=== PATIENT | male | born 1995 | race Two or more races ===

== ENCOUNTER 2023-06-06 15:57 | Inpatient (IN) | payer SELFPAY ==
[2023-06-06] VITALS (13 sets, daily range): BP systolic 110–145; BP diastolic 68–89; PULSE 69–92; RESP 14–18; TEMP 36.6–36.8; O2SAT 98–100; BMI 25.7; BMI 23.8
--- NOTE | 2023-06-06 15:54 | ECG_ITS ---
APPROVED REPORT Exam: Resting ECG HR:78 bpm ECG Measurements Heart Rate 78 AXES [place] 143 P 85 QRSd 109 QRS -79 QT 392 T 72 QTc 426 Conclusion Sinus rhythm T wave peaking concerning for hyperkalemic change INCOMPLETE RIGHT BUNDLE BRANCH BLOCK LEFT ANTERIOR FASCICULAR BLOCK [QRS AXIS <= -45, QR IN I, RS IN II] POSSIBLE SEPTAL MYOCARDIAL INFARCTION , OF INDETERMINATE AGE [30 ms Q WAVE IN V1/V2] Electronically signed by : LEXA HARRIS, 06/06/2023 19:30:24
--- NOTE | 2023-06-06 16:00 | HMH.EDGENADL ---
Discharge Plan Disposition Patient Disposition: Admitted Condition: Serious Clinical Impressions Clinical Impression: Diabetic ketoacidosis Qualifiers: Diabetes mellitus complication detail: without coma Discharge ED Provider: Alex Nicole General Adult HPI <SULTANA Greenfield - Last Filed: 06/06/23 17:44> General Chief complaint: Chest Pain Stated complaint: chest pain, weak, anxitey, dizzy, nausea Time Seen by Provider: 06/06/23 16:00 History of Present Illness HPI narrative: Patient presents initially with a chief complaint of chest pain . Patient actually describes difficulty and pain with swallowing and is only able to drink liquids and well chewed fruit. That has been going on for 5 days. Patient additionally tells me that he was diagnosed with diabetes approximately 1 month ago at the [facility] in [place]. However unfortunately, patient was not given a glucometer, and did not understand his diagnosis and it was not explained to him in Cameroonian at the time of his discharge. He did not know that he needed to be checking his blood sugar nor what diabetes was. He has been taking the oral medication that he was given and states that he is almost out. Patient reports feeling thirsty with increased urination. Patient denies cardiac chest pain shortness of breath fever chills hemoptysis hematochezia melena vomiting or diarrhea but does endorse nausea. Patient is traveling with the company for work and actually worked today. Related Data Allergies Allergy/AdvReac Type Severity Reaction Status Date / Time No Known Allergies Allergy Verified 06/06/23 16:27 PFSH <SULTANA Greenfield - Last Filed: 06/06/23 17:44> [facility] Disclaimer: The information contained in this section may have been updated after the patient was seen, as this information can be updated by other users. Social History (Updated 06/06/23 @ 17:44 by SULTANA Greenfield) Smoking Status: Current some day smoker alcohol intake: current current occupational status: employed Travel in the last 8 weeks: Inside the [place] <SULTANA Greenfield - Last Filed: 06/06/23 17:44> ROS Obtained: Yes Systems reviewed as appropriate & no additional complaints except as documented Physical Exam <SULTANA Greenfield - Last Filed: 06/06/23 17:44> General General appearance: alert and in no apparent distress Head Head exam: atraumatic and normal inspection Eye Eye exam: Present normal appearance, PERRL and EOMI ENT ENT exam: Present normal exam, mucous membranes dry and other (Is a strong odor of acetone on his breath.); Absent normal oropharynx (The entire oropharynx is beefy red but no obvious exudates noted or ulcers noted.) Neck Neck exam: Present normal inspection, full ROM and trachea midline; Absent lymphadenopathy Chest Chest inspection: Present normal inspection and symmetric chest wall rise Respiratory Respiratory exam: Present normal lung sounds bilaterally; Absent accessory muscle use Cardiovascular Cardiovascular exam: Present regular rate, normal rhythm, normal heart sounds, +S1 and +S2 Abdominal Exam Abdominal exam: Present soft, tenderness (Mildly diffusely tender to palpation) and normal bowel sounds; Absent guarding or rebound Extremities Exam Extremities exam: Present normal inspection and full ROM Back Exam Back exam: Present normal inspection and full ROM; Absent tenderness Neurological Exam Neurological exam: Present alert, oriented X3 and CN II-XII intact Psychiatric Psychiatric exam: Present normal affect and normal mood Skin Skin exam: Present warm, dry, intact and normal color Medical Decision Making <SULTANA Greenfield - Last Filed: 06/06/23 17:44> Medical Records Medical records reviewed: Yes I reviewed the patient's medical records. Tim Inquiry Pt receiving controlled substance: No Vital Signs: 06/06/23 15:59 06/06/23 16:30 06/06/23 17:00 Temperature 98.2 F Temperature Source Oral Pulse Rate 81 81 Pulse Rate [Right] 74 Respiratory Rate 18 Blood Pressure 110/85 132/81 Blood Pressure [Right Arm] 144/84 H Blood Pressure Mean 91 91 Blood Pressure Mean [Right Arm] 104 Blood Pressure Source [Right Arm] Automatic Cuff 02 Sat by Pulse Oximetry 100 100 100 Oxygen Delivery Method Room Air 06/06/23 17:30 Temperature Temperature Source Pulse Rate 81 Pulse Rate [Right] Respiratory Rate Blood Pressure 131/89 Blood Pressure [Right Arm] Blood Pressure Mean 103 Blood Pressure Mean [Right Arm] Blood Pressure Source [Right Arm] 02 Sat by Pulse Oximetry 100 Oxygen Delivery Method Lab Data Lab results reviewed: Yes I reviewed the patient's lab results. Lab Results 06/06/23 16:04: WBC 9.1, RBC 4.47 L, Hgb 14.2, Hct 44.9, MCV 100.6 H, MCH 31.7 H, MCHC 31.6 L, RDW 14.6, Plt Count 281, MPV 9.1, Neut % (Auto) 82.9 H, Lymph % (Auto) 12.3, Polk % (Auto) 3.7, Eos % (Auto) 0.4, Baso % (Auto) 0.6, Neut # (Auto) 7.6, Lymph # (Auto) 1.1, Polk # (Auto) 0.3, Eos # (Auto) 0.0, Baso # (Auto) 0.1, Sodium 126 L, Potassium 5.5 H, Chloride 92 L, Carbon Dioxide 8 L*, Anion Gap 31.5 H, BUN 14, Creatinine 1.20, Estimated GFR 73, Est GFR ( Amer) 88, Glucose 990 H*, Hemoglobin A1c > 14.0 H, Calcium 9.1, Phosphorus 4.4, Magnesium 2.1, Total Bilirubin 0.8, AST 37, ALT 44, Alkaline Phosphatase 267 H, Troponin I < 0.01, Total Protein 7.1, Albumin 4.7, Globulin 2.4, Albumin/Globulin Ratio 2.0 H, TSH 1.28, Acetone Level Small 06/06/23 17:04: Urine Color Yellow, Urine Appearance Clear, Urine pH 5.5, Ur Specific [place] 1.015, Urine Protein Negative, Urine Glucose (UA) 3+, Urine Ketones 3+, Urine Blood Negative, Urine Nitrate Negative, Urine Bilirubin Negative, Urine Urobilinogen 0.2, Ur Leukocyte Esterase Negative, Urine RBC None, Urine WBC None, Ur Squamous Epith Cells Occasional, Urine Bacteria Trace 06/06/23 16:04 06/06/23 16:04 Orders (Tests/Meds): ED MEDICATIONS Generic Name Dose Route Start Last Admin Trade Name Freq PRN Reason Stop Dose Admin Dextrose 50 ml 06/06/23 17:42 Dextrose 50% 50ml Syringe (Crash Cart) IVP 07/06/23 17:41 NEEDED PRN Per DKA Protocol Sodium Chloride 1,000 mls @ 150 mls/hr 06/06/23 19:15 Sod Chlor 0.9% 1000ml Bag IV 07/06/23 19:14 .Q6H40M DANIEL Sodium Chloride 2,000 mls @ 999 mls/hr 06/06/23 17:15 Sod Chlor 0.9% 1000ml Bag IV 07/06/23 17:14 .Q2H1M [facility] Insulin Human Regular 100 unit 101 mls @ 5.05 mls/hr 06/06/23 17:15 / Sodium Chloride IV 07/06/23 17:14 .Q20H [facility] Protocol 5 UNIT/HR Insulin Glargine 10 unit 06/06/23 21:00 Insulin Glargine 100 Units/Ml 3ml Flexpen SQ 07/06/23 20:59 HS [facility] Discontinued Medications Generic Name Dose Route Start Last Admin Trade Name Freq PRN Reason Stop Dose Admin Acetaminophen 1,000 mg 06/06/23 16:01 06/06/23 16:28 Acetaminophen 1,000mg/100ml Vial IV 06/06/23 16:02 1,000 mg ONCE ONE Administration Belladonna Alkaloids 60 ml 06/06/23 17:27 Belladonna Alkaloids 60 Ml Ml PO 06/06/23 17:28 ONCE ONE Lactated Ringer's 1,000 mls @ 999 mls/hr 06/06/23 16:04 06/06/23 16:28 Lactated Ringer's 1000 Ml Bag IV 06/06/23 17:04 999 mls/hr .Q1H1M ONE Administration Calcium Gluconate/Sodium Chloride 1 gm in 50 mls @ 50 mls/hr 06/06/23 17:10 Calcium Gluconate 1,000mg/50ml Nacl Premix IV 06/06/23 18:09 ONCE ONE Insulin Human Regular 10 unit 06/06/23 17:03 Insulin Human Regular 100 Units/Ml 10ml Vial IVP 06/06/23 17:04 ONCE ONE Ondansetron HCl 4 mg 06/06/23 16:01 06/06/23 16:31 Ondansetron 4mg Odt SL 06/06/23 16:02 4 mg ONCE ONE Administration ORDERS Category Date Time Status Nutrition Consult [CONS] Routine Cons 06/06/23 17:42 Active Chest XR -- portable [XR chest portable] Stat Exams 06/06/23 16:01 Completed Acetone, Serum (Rapid) Stat Lab 06/06/23 16:04 Completed Basic Metabolic Panel Q4H Lab 06/06/23 17:45 Ordered Basic Metabolic Panel Q4H Lab 06/06/23 21:45 Ordered Basic Metabolic Panel Q4H Lab 06/07/23 01:45 Ordered Basic Metabolic Panel Q4H Lab 06/07/23 05:45 Ordered Basic Metabolic Panel Q4H Lab 06/07/23 09:45 Ordered Basic Metabolic Panel Q4H Lab 06/07/23 13:45 Ordered CBC w/Auto Diff [Complete Blood Count Auto Diff] Stat Lab 06/06/23 16:04 Completed CMP [Comprehensive Metabolic Panel] Stat Lab 06/06/23 16:04 Completed Complete Blood Count Auto Diff AMLAB Lab 06/07/23 06:00 Ordered Comprehensive Metabolic Panel AMLAB Lab 06/07/23 06:00 Ordered Hemoglobin A1C Stat Lab 06/06/23 16:04 Completed Magnesium AMLAB Lab 06/07/23 06:00 Ordered Magnesium Q4H Lab 06/06/23 17:45 Ordered Magnesium Q4H Lab 06/06/23 21:45 Ordered Magnesium Q4H Lab 06/07/23 01:45 Ordered Magnesium Q4H Lab 06/07/23 05:45 Ordered Magnesium Q4H Lab 06/07/23 09:45 Ordered Magnesium Q4H Lab 06/07/23 13:45 Ordered Magnesium Stat Lab 06/06/23 16:04 Completed Phosphorous AMLAB Lab 06/07/23 06:00 Ordered Phosphorous Q4H Lab 06/06/23 17:45 Ordered Phosphorous Q4H Lab 06/06/23 21:45 Ordered Phosphorous Q4H Lab 06/07/23 01:45 Ordered Phosphorous Q4H Lab 06/07/23 05:45 Ordered Phosphorous Q4H Lab 06/07/23 09:45 Ordered Phosphorous Q4H Lab 06/07/23 13:45 Ordered Phosphorous Stat Lab 06/06/23 16:04 Completed Rapid PCR Covid and Flu A/B Stat Lab 06/06/23 16:02 Ordered TSH [Thyroid Stimulating Hormone] Stat Lab 06/06/23 16:04 Completed Trop I [Troponin I] Stat Lab 06/06/23 16:04 Completed Troponin I Q3H Lab 06/06/23 19:15 Ordered Troponin I Q3H Lab 06/06/23 22:15 Ordered UA [Urinalysis and Microscopic] Stat Lab 06/06/23 17:04 Completed Blood Culture Stat Micro 06/06/23 17:02 Ordered Urine Culture Stat Micro 06/06/23 17:04 Received VBG [Venous Blood Gas] Stat RT 06/06/23 17:08 Ordered Medical Decision Narrative: In summary patient is a 27-year-old male who presents to the emergency department for evaluation of dysphagia nausea abdominal pain. Patient is normotensive with normal heart rate satting at 100% on room air breathing 18 times a minute upon arrival, with a temperature of 98.2. Physical exam shows a well-nourished well-developed 27-year-old male who has beefy red oropharynx dry oral mucosa fusilli mildly nonfocally tender abdomen. Differential diagnosis includes DKA versus thrush versus other infection versus esophageal obstruction. Initial workup will be conducted with hematologic labs plain film chest x-ray fingerstick blood sugar. Initial interventions include crystalloid bolus Toradol Tylenol. Initial workup reviewed by me shows the patient is in DKA. Given the patient's history of newly diagnosed diabetes mellitus and DKA had an interactive discussion with hospital medicine regarding patient management. They agreed to admit the patient for ongoing treatment and care. <Alex Nicole MD - Last Filed: 06/06/23 18:15> Vital Signs: 06/06/23 15:59 06/06/23 16:30 06/06/23 17:00 Temperature 98.2 F Temperature Source Oral Pulse Rate 81 81 Pulse Rate [Right] 74 Respiratory Rate 18 Blood Pressure 110/85 132/81 Blood Pressure [Right Arm] 144/84 H Blood Pressure Mean 91 91 Blood Pressure Mean [Right Arm] 104 Blood Pressure Source [Right Arm] Automatic Cuff 02 Sat by Pulse Oximetry 100 100 100 Oxygen Delivery Method Room Air 06/06/23 17:30 Temperature Temperature Source Pulse Rate 81 Pulse Rate [Right] Respiratory Rate Blood Pressure 131/89 Blood Pressure [Right Arm] Blood Pressure Mean 103 Blood Pressure Mean [Right Arm] Blood Pressure Source [Right Arm] 02 Sat by Pulse Oximetry 100 Oxygen Delivery Method Lab Data Lab Results 06/06/23 16:04: WBC 9.1, RBC 4.47 L, Hgb 14.2, Hct 44.9, MCV 100.6 H, MCH 31.7 H, MCHC 31.6 L, RDW 14.6, Plt Count 281, MPV 9.1, Neut % (Auto) 82.9 H, Lymph % (Auto) 12.3, Polk % (Auto) 3.7, Eos % (Auto) 0.4, Baso % (Auto) 0.6, Neut # (Auto) 7.6, Lymph # (Auto) 1.1, Polk # (Auto) 0.3, Eos # (Auto) 0.0, Baso # (Auto) 0.1, Sodium 126 L, Potassium 5.5 H, Chloride 92 L, Carbon Dioxide 8 L*, Anion Gap 31.5 H, BUN 14, Creatinine 1.20, Estimated GFR 73, Est GFR ( Amer) 88, Glucose 990 H*, Hemoglobin A1c > 14.0 H, Calcium 9.1, Phosphorus 4.4, Magnesium 2.1, Total Bilirubin 0.8, AST 37, ALT 44, Alkaline Phosphatase 267 H, Troponin I < 0.01, Total Protein 7.1, Albumin 4.7, Globulin 2.4, Albumin/Globulin Ratio 2.0 H, TSH 1.28, Acetone Level Small 06/06/23 17:04: Urine Color Yellow, Urine Appearance Clear, Urine pH 5.5, Ur Specific [place] 1.015, Urine Protein Negative, Urine Glucose (UA) 3+, Urine Ketones 3+, Urine Blood Negative, Urine Nitrate Negative, Urine Bilirubin Negative, Urine Urobilinogen 0.2, Ur Leukocyte Esterase Negative, Urine RBC None, Urine WBC None, Ur Squamous Epith Cells Occasional, Urine Bacteria Trace Orders (Tests/Meds): ED MEDICATIONS Generic Name Dose Route Start Last Admin Trade Name Freq PRN Reason Stop Dose Admin Dextrose 50 ml 06/06/23 17:42 Dextrose 50% 50ml Syringe (Crash Cart) IVP 07/06/23 17:41 NEEDED PRN Per DKA Protocol Sodium Chloride 1,000 mls @ 150 mls/hr 06/06/23 19:15 Sod Chlor 0.9% 1000ml Bag IV 07/06/23 19:14 .Q6H40M DANIEL Sodium Chloride 2,000 mls @ 999 mls/hr 06/06/23 17:15 Sod Chlor 0.9% 1000ml Bag IV 07/06/23 17:14 .Q2H1M DANIEL Insulin Human Regular 100 unit 101 mls @ 5.05 mls/hr 06/06/23 17:15 / Sodium Chloride IV 07/06/23 17:14 .Q20H DANIEL Protocol 5 UNIT/HR Insulin Glargine 10 unit 06/06/23 21:00 Insulin Glargine 100 Units/Ml 3ml Flexpen SQ 07/06/23 20:59 HS DANIEL Discontinued Medications Generic Name Dose Route Start Last Admin Trade Name Miko PRN Reason Stop Dose Admin Acetaminophen 1,000 mg 06/06/23 16:01 06/06/23 16:28 Acetaminophen 1,000mg/100ml Vial IV 06/06/23 16:02 1,000 mg ONCE ONE Administration Belladonna Alkaloids 60 ml 06/06/23 17:27 Belladonna Alkaloids 60 Ml Ml PO 06/06/23 17:28 ONCE ONE Lactated Ringer's 1,000 mls @ 999 mls/hr 06/06/23 16:04 06/06/23 16:28 Lactated Ringer's 1000 Ml Bag IV 06/06/23 17:04 999 mls/hr .Q1H1M ONE Administration Calcium Gluconate/Sodium Chloride 1 gm in 50 mls @ 50 mls/hr 06/06/23 17:10 Calcium Gluconate 1,000mg/50ml Nacl Premix IV 06/06/23 18:09 ONCE ONE Insulin Human Regular 10 unit 06/06/23 17:03 Insulin Human Regular 100 Units/Ml 10ml Vial IVP 06/06/23 17:04 ONCE ONE Ondansetron HCl 4 mg 06/06/23 16:01 06/06/23 16:31 Ondansetron 4mg Odt SL 06/06/23 16:02 4 mg ONCE ONE Administration ORDERS Category Date Time Status Nutrition Consult [CONS] Routine Cons 06/06/23 17:42 Active Chest XR -- portable [XR chest portable] Stat Exams 06/06/23 16:01 Completed Acetone, Serum (Rapid) Stat Lab 06/06/23 16:04 Completed Basic Metabolic Panel Q4H Lab 06/06/23 17:45 Ordered Basic Metabolic Panel Q4H Lab 06/06/23 21:45 Ordered Basic Metabolic Panel Q4H Lab 06/07/23 01:45 Ordered Basic Metabolic Panel Q4H Lab 06/07/23 05:45 Ordered Basic Metabolic Panel Q4H Lab 06/07/23 09:45 Ordered Basic Metabolic Panel Q4H Lab 06/07/23 13:45 Ordered CBC w/Auto Diff [Complete Blood Count Auto Diff] Stat Lab 06/06/23 16:04 Completed CMP [Comprehensive Metabolic Panel] Stat Lab 06/06/23 16:04 Completed Complete Blood Count Auto Diff AMLAB Lab 06/07/23 06:00 Ordered Comprehensive Metabolic Panel AMLAB Lab 06/07/23 06:00 Ordered Hemoglobin A1C Stat Lab 06/06/23 16:04 Completed Magnesium AMLAB Lab 06/07/23 06:00 Ordered Magnesium Q4H Lab 06/06/23 17:45 Ordered Magnesium Q4H Lab 06/06/23 21:45 Ordered Magnesium Q4H Lab 06/07/23 01:45 Ordered Magnesium Q4H Lab 06/07/23 05:45 Ordered Magnesium Q4H Lab 06/07/23 09:45 Ordered Magnesium Q4H Lab 06/07/23 13:45 Ordered Magnesium Stat Lab 06/06/23 16:04 Completed Phosphorous AMLAB Lab 06/07/23 06:00 Ordered Phosphorous Q4H Lab 06/06/23 17:45 Ordered Phosphorous Q4H Lab 06/06/23 21:45 Ordered Phosphorous Q4H Lab 06/07/23 01:45 Ordered Phosphorous Q4H Lab 06/07/23 05:45 Ordered Phosphorous Q4H Lab 06/07/23 09:45 Ordered Phosphorous Q4H Lab 06/07/23 13:45 Ordered Phosphorous Stat Lab 06/06/23 16:04 Completed Rapid PCR Covid and Flu A/B Stat Lab 06/06/23 16:02 Ordered TSH [Thyroid Stimulating Hormone] Stat Lab 06/06/23 16:04 Completed Trop I [Troponin I] Stat Lab 06/06/23 16:04 Completed Troponin I Q3H Lab 06/06/23 19:15 Ordered Troponin I Q3H Lab 06/06/23 22:15 Ordered UA [Urinalysis and Microscopic] Stat Lab 06/06/23 17:04 Completed Blood Culture Stat Micro 06/06/23 17:02 Ordered Urine Culture Stat Micro 06/06/23 17:04 Received VBG [Venous Blood Gas] Stat RT 06/06/23 17:08 Ordered Medical Decision Narrative: In summary patient is a 27-year-old male who presents to the emergency department for evaluation of dysphagia nausea abdominal pain. Patient is normotensive with normal heart rate satting at 100% on room air breathing 18 times a minute upon arrival, with a temperature of 98.2. Physical exam shows a well-nourished well-developed 27-year-old male who has beefy red oropharynx dry oral mucosa fusilli mildly nonfocally tender abdomen. Differential diagnosis includes DKA versus thrush versus other infection versus esophageal obstruction. Initial workup will be conducted with hematologic labs plain film chest x-ray fingerstick blood sugar. Initial interventions include crystalloid bolus Toradol Tylenol. Initial workup reviewed by me shows the patient is in DKA. Given the patient's history of newly diagnosed diabetes mellitus and DKA had an interactive discussion with hospital medicine regarding patient management. Patient started on insulin bolus and drip. Given calcium gluconate IV for EKG changes. EKG independently interpreted and sinus tachycardia with peaked T waves. Intervals within normal limits. No ischemic change. They agreed to admit the patient for ongoing treatment and care. Because patient high risk for clinical decompensation, deemed appropriate for inpatient admission. Results were relayed to patient who voiced understanding and patient was agreeable to inpatient admission and management. Patient was admitted to the hospital for further definitive management. I was consulted by the SONIA, and we discussed the complexity of the problems being addressed. I approved the treatment and management plan for this patient?s care in the Emergency Department, thus performing a substantive portion of the medical decision making. Alex Nicole MD Critical Care <SULTANA Greenfield - Last Filed: 06/06/23 17:44> Critical Care Time Critical Care Time: No <Alex Nicole MD - Last Filed: 06/06/23 18:15> Critical Care Time Critical Care Time: Yes (endo, cv) Attestation: On 06/06/23, the high probability of a clinically significant, sudden or life threatening deterioration of the following system(s) required my full and direct attention, intervention and personal management. The time I documented below is in addition to time spent performing reported procedures but includes the following listed in this critical care notation. Total Time Total Critical Care Time: 60
--- NOTE | 2023-06-06 16:01 | XR_ITS ---
FINAL REPORT CLINICAL HISTORY: Vomiting diarrhea COMPARISON: None FINDINGS: The heart size is normal. The mediastinum is normal. There is no focal infiltrate or edema. There are no pleural effusions. There is no pneumothorax. There is no osseous abnormality. IMPRESSION: No acute cardiopulmonary process Reviewed, Interpreted and Dictated by Edy Christianson MD Transcribed by Janelle Andino Authenticated and [facility]
[2023-06-06 16:16] LABS: Basophils # 0.1 K/mm3 (0-0.2); Basophils % 0.6 % (0.1-2.0); Eosinophils % 0.4 % (0.1-12.0); Hematocrit 44.9 % (42.0-52.0); Hemoglobin 14.2 g/dL (14.1-18.0); Lymphocytes # 1.1 K/mm3 (0.7-4.5); Lymphocytes % 12.3 % (10-50); Mean Corpuscular HGB Conc 31.6 g/dL (31.8-35.4); Mean Corpuscular Hemoglobin 31.7 pg (27.0-31.2); Mean Corpuscular Volume 100.6 fl (80-94); Mean Platelet Volume 9.1 fl (7.4-10.4); Monocytes # 0.3 K/mm3 (0.1-1.0); Monocytes % 3.7 % (1.7-9.3); Neutrophils # 7.6 K/mm3 (1.8-7.8); Neutrophils % 82.9 % (37.0-80.0); Platelet Count 281 K/mm3 (142-424); Red Blood Count 4.47 M/mm3 (4.60-6.20); Red Cell Distribution Width 14.6 % (11.5-17.5); White Blood Count 9.1 K/mm3 (4.8-10.8)
[2023-06-06] MEDS: ACETAMINOPHEN 1,000MG/100ML VIAL 1000 MG IV (16:28)
[2023-06-06] MEDS: LACTATED RINGERS 1000ML 1,000 ML 999 ML IV (16:28)
[2023-06-06 16:29] LABS: Chloride 92 mmol/L (98-107); Potassium 5.5 mmoL/L (3.5-5.1); Sodium 126 mmol/L (136-145)
[2023-06-06] MEDS: ONDANSETRON 4MG ODT 4 MG SL (16:31)
[2023-06-06 16:32] LABS: Alanine Aminotransferase 44 U/L (12-78); Albumin Level 4.7 g/dl (3.5-5.0); Alkaline Phosphatase 267 U/L (38-126); Anion Gap 31.5 mEq/L (5-15); Aspartate Amino Transferase 37 U/L (17-59); Bilirubin,Total 0.8 mg/dl (0.2-1.3); Blood Urea Nitrogen 14 mg/dl (9-20); Estimated Glomerular Filt Rate 73 ml/min (>60); GFR (African American) 88 ML/MIN (>60); Globulin 2.4 g/dL (1.3-3.2); Total Protein,Serum 7.1 g/dl (6.3-8.2)
[2023-06-06 16:33] LABS: Calcium 9.1 mg/dl (8.4-10.2)
[2023-06-06 16:38] LABS: Acetone, Serum (Rapid) Small (None Detect)
--- NOTE | 2023-06-06 16:39 | PC.NURSE ---
rounded on pt. pt asked for some water checked with the Doctor and advised it was ok. Pt was given a cup of water
[2023-06-06 16:42] LABS: Magnesium 2.1 mg/dl (1.6-2.3)
[2023-06-06 16:46] LABS: Carbon Dioxide 8 mmol/L (22.0-30.0); Glucose 990 mg/dl (74-100); Troponin I < 0.01 ng/ml (0.00-0.034)
[2023-06-06 17:03] LABS: Thyroid Stimulating Hormone 1.28 uIU/mL (0.465-4.68)
[2023-06-06 17:13] LABS: Microscopic, Urine URINE MICROSCOPIC (MICROSCOPIC)
[2023-06-06 17:15] LABS: Appearance,Urine CLEAR (Clear); Bilirubin,Urine Negative (Negative); Blood, Urine Negative (Negative); Color,Urine YELLOW (Yellow); Glucose,Urine (UA) 3+ (Negative); Ketones,Urine 3+ (Negative); Leukocyte Esterase,Urine Negative (Negative); Nitrate,Urine Negative (Negative); PH,Urine 5.5 (5.0-8.5); Protein,Urine Negative (Negative); Specific Gravity, Urine 1.015 (1.005-1.030); Urobilinogen,Urine 0.2 EU/dl (0.2)
[2023-06-06 17:16] LABS: Phosphorous 4.4 mg/dl (2.5-4.5)
[2023-06-06 17:30] LABS: Hemoglobin A1C > 14.0 % (4.0-6.0)
[2023-06-06 17:33] LABS: Bacteria,Urine Trace /lpf; Squamous Epithelial Cell,Urine Occasional #/hpf (0-5)
--- NOTE | 2023-06-06 18:00 | PC.NURSE ---
ADMISSION TO ICU TO 218 WITH DX OF DKA TO SERVICE OF DR. LEVIN. WAITING FOR ROOM TO BE CLEANED.
[2023-06-06] MEDS: BELLADONNA ALKALOIDS 60 ML ML PO (18:12)
[2023-06-06] MEDS: INSULIN HUMAN REGULAR 100 UNITS/ML 10ML VIAL 10 UNIT IVP (18:14)
[2023-06-06] MEDS: INSULIN REGULAR, HUMAN 100 UNIT in 0.9 % SODIUM CHLORIDE 100 ML 5.04999999999999982 UNIT IV (18:16)
[2023-06-06] MEDS: CALCIUM GLUC IN NACL, ISO-OSM 1 GM/50 ML BAG IV (18:26)
--- NOTE | 2023-06-06 18:33 | PC.NURSE ---
Will start NS when calcium is finished. No line available
[2023-06-06 18:38] LABS: Chloride 99 mmol/L (98-107); Sodium 134 mmol/L (136-145)
[2023-06-06 18:39] LABS: Potassium 4.5 mmoL/L (3.5-5.1)
[2023-06-06 18:41] LABS: Anion Gap 29.5 mEq/L (5-15); Blood Urea Nitrogen 13 mg/dl (9-20); Creatinine Clearance Estimated 100 mL/min (50-200); Estimated Glomerular Filt Rate 80 ml/min (>60); GFR (African American) 97 ML/MIN (>60)
[2023-06-06 18:42] LABS: Calcium 9.5 mg/dl (8.4-10.2); Magnesium 2.3 mg/dl (1.6-2.3); Phosphorous 3.9 mg/dl (2.5-4.5)
[2023-06-06 18:53] LABS: Carbon Dioxide 10 mmol/L (22.0-30.0); Glucose 696 mg/dl (74-100)
[2023-06-06 19:21] LABS: VBG HCO3 11.4 mmol/L (23-30); VBG Oxygen Saturation 90.7 % (50-70); VBG PCO2 36.6 mmol/L (35-51); VBG PO2 71.2 mmol/L (28-40); VBG Total CO2 12.5 mmol/L (23-27)
[2023-06-06 19:27] LABS: Lactate Venous 3.2 mmol/L (0.4-2.0); VBG PH 7.11 mmol/L (7.31-7.41)
[2023-06-06] MEDS: 0.9 % SODIUM CHLORIDE 1000ML 2,000 ML 999 ML IV ×2 (19:30→21:18)
--- NOTE | 2023-06-06 19:35 | P.HP_ITS ---
History of Present Illness *Admission Date: 06/06/23 *Reason for visit:: thirsty *History of present illness: This is a 27 yo male with no known medical history arrived to ED for evaluation of chest pain . apparent difficulty swallowing, increased thirsty and urination that had worsened since last 5 days ago. Interview made on his own language Lebanese. Patient was a daily heavy alcohol drinker until a month a ago when he was diagnosed with diabetes at the [facility] in [place]. He also has lose 50 lbs in the last 30 days. Patient lack education about his recent diagnosis, and has to move for a work opportunity. He did not know that he needed to be checking his blood sugar nor what diabetes was. He has been taking the oral medications that he cannot recall the name and was running out. Patient denies cardiac chest pain shortness of breath fever chills hemoptysis hematochezia melena vomiting or diarrhea but does endorse nausea. patient was brought in from work today. Admitted for further treatment and management. [facility] Disclaimer: The information contained in this section may have been updated after the patient was seen, as this information can be updated by other users. Social History (Updated 06/06/23 @ 17:44 by SULTANA Greenfield) Smoking Status: Current some day smoker alcohol intake: current current occupational status: employed Travel in the last 8 weeks: Inside the [place] Review of Systems Review of Systems Review of systems:: pertinent systems reviewed and negative unless documented below Meds Home Medications and Allergies Home Medications Medication Instructions Recorded Confirmed Type No Known Home Medications 06/06/23 06/06/23 History New Prescriptions to Start Prescriptions: Allergies Allergy/AdvReac Type Severity Reaction Status Date / Time No Known Allergies Allergy Verified 06/06/23 16:27 Exam Data for Last 24 hours Vital signs and Labs for Last 24 Hours: Temp Pulse Resp BP Pulse Ox O2 Del Method 97.9 F 75 16 110/70 99 Room Air 06/06/23 19:22 06/06/23 18:40 06/06/23 18:40 06/06/23 18:40 06/06/23 18:00 06/06/23 18:40 Laboratory Results - last 24 hr 06/06/23 16:04: WBC 9.1, RBC 4.47 L, Hgb 14.2, Hct 44.9, MCV 100.6 H, MCH 31.7 H , MCHC 31.6 L, RDW 14.6, Plt Count 281, MPV 9.1, Neut % (Auto) 82.9 H, Lymph % (Auto) 12.3, [place] % (Auto) 3.7, Eos % (Auto) 0.4, Baso % (Auto) 0.6, Neut # (Auto) 7.6, Lymph # (Auto) 1.1, [place] # (Auto) 0.3, Eos # (Auto) 0.0, Baso # (Auto) 0.1, Sodium 126 L, Potassium 5.5 H, Chloride 92 L, Carbon Dioxide 8 L*, Anion Gap 31.5 H, BUN 14, Creatinine 1.20, Estimated GFR 73, Est GFR ( Amer) 88, Glucose 990 H*, Hemoglobin A1c > 14.0 H, Calcium 9.1, Phosphorus 4.4, Magnesium 2.1, Total Bilirubin 0.8, AST 37, ALT 44, Alkaline Phosphatase 267 H, Troponin I < 0.01, Total Protein 7.1, Albumin 4.7, Globulin 2.4, Albumin/Globulin Ratio 2.0 H, TSH 1.28, Acetone Level Small 06/06/23 17:04: Urine Color Yellow, Urine Appearance Clear, Urine pH 5.5, Ur Specific [place] 1.015, Urine Protein Negative, Urine Glucose (UA) 3+, Urine Ketones 3+, Urine Blood Negative, Urine Nitrate Negative, Urine Bilirubin Negative, Urine Urobilinogen 0.2, Ur Leukocyte Esterase Negative, Urine RBC None, Urine WBC None, Ur Squamous Epith Cells Occasional, Urine Bacteria Trace 06/06/23 17:08: VBG pH 7.11 L, VBG pCO2 36.6, VBG pO2 71.2 H, VBG HCO3 11.4 L, VBG Total CO2 12.5 L, VBG O2 Saturation 90.7 H, VBG Base Excess -18.0 L, VBG Lactic Acid 3.2 H 06/06/23 18:23: Sodium 134 L, Potassium 4.5, Chloride 99, Carbon Dioxide 10 L D, Anion Gap 29.5 H, BUN 13, Creatinine 1.10, Estimated Creat Clear 100, Estimated GFR 80, Est GFR ( Amer) 97, Glucose 696 H* D, Calcium 9.5, Phosphorus 3.9, Magnesium 2.3 I & O for Last 24 hours: Intake & Output 06/03/23 06/04/23 06/05/23 06/06/23 23:59 23:59 23:59 23:59 Intake Total 5.976 / 5.976 Output Total 500 / 500 Balance -494.024 / -494.024 Weight 65.005 kg Constitutional Constitutional: mild distress and cooperative *Routine HEENT Exam Head: Present normocephalic and atraumatic Eye: Present EOMI, PERRL and normal accommodation ENT: Present mucous membranes dry *Routine Neck Exam Neck: Present supple; Absent lymphadenopathy *Routine Respiratory Exam Respiratory: Present CTA bilaterally *Routine Cardiovascular Exam Cardiovascular: Present RRR *Routine Abdominal Exam Abdominal: Present soft and normoactive bowel sounds; Absent tenderness *Routine Rectal Exam Rectal:: deferred *Routine Genitalia Exam Genitalia:: deferred *Routine Extremities Exam Extremities: Absent cyanosis, clubbing or edema *Routine Skin Exam Skin: Present warm; Absent rash *Routine Neurological Exam Neurological: Present alert, oriented X3, normal reflexes and moving all extremities Routine Psychiatric Exam Psychiatric: Present anxious H&P: Result Imaging and Cardiology EKG: Status: image reviewed by me, Preliminary report and final report Chest x-ray: Status: image reviewed by me, Preliminary report and final report Assessment and Plan *Assessment and plan (1) Diabetic ketoacidosis: Status: Acute Qualifiers: Diabetes mellitus complication detail: without coma Diabetes mellitus type: other specified (including MEMO) Qualified Code(s): E13.10 - Other specified diabetes mellitus with ketoacidosis without coma Category: Medical Code(s): E11.10 - Type 2 diabetes mellitus with ketoacidosis without coma (2) Newly diagnosed diabetes: Status: Acute Category: Medical Code(s): E11.9 - Type 2 diabetes mellitus without complications (3) Alcoholism in remission: Status: Acute Category: Medical Code(s): F10.21 - Alcohol dependence, in remission (4) Smoker: Status: Acute Category: Social Hx Code(s): F17.200 - Nicotine dependence, unspecified, uncomplicated Plan 27 yo male with no known medical history arrived to ED for evaluation of chest pain . apparent difficulty swallowing, increased thirsty and urination that had worsened since last 5 days ago. Interview made on his own language Lebanese. On arrival initial work up showed Glucose of 990. A1c of 14. anion gap of 31. patient clinically on DKA without coma. DKA protocols started and findings were discussed with ED. Agreed for admission. Plan as follow: -DKA in a newly diagnosed diabetes mellitus (MEMO): admit patient started on DKA protocols. watch and replace electrolytes per protocols NPO insulin continuous infusion. EKG and CXR reviewed CMP Q4h start lantus 10U baseline when gap closes deputy general counsel consulted. repeat labs in the morning Hx of alcoholism: CIWA score low. patient c/o anxiety Klonopin 0.5mg one time dose given Smoker: on nicotine patch lovenox for dvt ppx, On protonix for GI bleed protection Full code Rounded on patient after nurse practitioner. Personally examined and interviewed patient. Agree with exam findings and care plan as documented.
--- NOTE | 2023-06-06 19:39 | PC.NURSE ---
Patient arrived to floor via stretcher from ED at 19:10.
[2023-06-06 19:44] LABS: Troponin I < 0.01 ng/ml (0.00-0.034)
[2023-06-06] MEDS: clonazePAM 0.5MG TABLET 0.5 MG PO (20:48)
[2023-06-06] MEDS: NICOTINE 21MG/24HR PATCH 21 MG TD (20:49)
[2023-06-06] MEDS: 0.9 % SODIUM CHLORIDE 1000ML 1,000 ML 150 ML IV (21:23)
[2023-06-06 22:01] LABS: Coronavirus 19, PCR Not Detected (NotDetected); Influenza A, PCR Not Detected (NotDetected); Influenza B, PCR Not Detected (NotDetected)
[2023-06-06 22:27] LABS: Chloride 114 mmol/L (98-107); Potassium 3.7 mmoL/L (3.5-5.1); Sodium 140 mmol/L (136-145)
[2023-06-06 22:29] LABS: Blood Urea Nitrogen 8 mg/dl (9-20); Creatinine Clearance Estimated 170 mL/min (50-200); Estimated Glomerular Filt Rate 162 ml/min (>60); GFR (African American) 196 ML/MIN (>60)
[2023-06-06 22:30] LABS: Anion Gap 15.7 mEq/L (5-15); Calcium 8.4 mg/dl (8.4-10.2); Carbon Dioxide 14 mmol/L (22.0-30.0); Glucose 262 mg/dl (74-100); Magnesium 2.2 mg/dl (1.6-2.3)
[2023-06-06 22:34] LABS: Phosphorous 1.7 mg/dl (2.5-4.5)
[2023-06-06 22:43] LABS: Troponin I < 0.01 ng/ml (0.00-0.034)
--- NOTE | 2023-06-06 23:08 | PC.NURSE ---
Addendum entered by Carla Grissom RN 06/07/23 05:41: Patient has a decent night. 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 Patient only complaint through the night was that he could not eat. RN tried to educate the patient as much as possible about the need to not eat or drink anything through the shift due to elevated sugars. Patient stated he understood. Patient has remained on room air and AxO through the night. Has not complained on anxiety anymore this shift except at the beginning. It is of note the patient use to be a heavy drinking and drank up to 10 beers a day. Has not had a drink in 1 month. no other issues through the night Addendum entered by Carla Grissom RN 06/07/23 05:22: communicated face to face with provider for a diet order, transfer to step down, provider to put in Sliding scale insulin Addendum entered by Carla Grissom RN 06/07/23 03:57: Fluids stopped at 4am, per provider notification in worklist. Original Note: Provider came to the bedside regarding the phosphate. Provider stated to not give the potassium phosphate until we see what the next BMP. Will hold the on MAR for now
[2023-06-06 23:23] LABS: Reflex Lactic Add Lactic Reflex
[2023-06-07] VITALS (13 sets, daily range): BP systolic 103–144; BP diastolic 43–78; PULSE 56–82; RESP 14–20; TEMP 36.4–37; O2SAT 95–100; BMI 23.8
[2023-06-07] MEDS: 0.9% NaCl w/20mEq KCL 1,000 ML 150 ML IV (00:08)
[2023-06-07 00:11] LABS: Lactic Acid Follow Up (RFLX 1) 0.8 mmol/L (0.7-2.1)
[2023-06-07] MEDS: MELATONIN 5MG TABLET 10 MG PO ×2 (00:32→20:44)
[2023-06-07 01:04] LABS: POC Glucose,Bedside 192 (70-110)
[2023-06-07 01:04] LABS: POC Glucose,Bedside 297 (70-110)
[2023-06-07 01:04] LABS: POC Glucose,Bedside 163 (70-110)
[2023-06-07 01:04] LABS: POC Glucose,Bedside 468 (70-110)
[2023-06-07 01:04] LABS: POC Glucose,Bedside 262 (70-110)
[2023-06-07 01:04] LABS: POC Glucose,Bedside 400 (70-110)
[2023-06-07 01:04] LABS: POC Glucose,Bedside 233 (70-110)
[2023-06-07 02:00] LABS: POC Glucose,Bedside 169 (70-110)
[2023-06-07 02:09] LABS: Anion Gap 11.8 mEq/L (5-15); Blood Urea Nitrogen 7 mg/dl (9-20); Calcium 8.7 mg/dl (8.4-10.2); Carbon Dioxide 17 mmol/L (22.0-30.0); Chloride 115 mmol/L (98-107); Creatinine Clearance Estimated 170 mL/min (50-200); Estimated Glomerular Filt Rate 162 ml/min (>60); GFR (African American) 196 ML/MIN (>60); Glucose 156 mg/dl (74-100); Phosphorous 2.3 mg/dl (2.5-4.5); Potassium 3.8 mmoL/L (3.5-5.1); Sodium 140 mmol/L (136-145)
[2023-06-07] MEDS: INSULIN GLARGINE 100 UNITS/ML 3ML FLEXPEN 10 UNIT SQ (02:21)
[2023-06-07] MEDS: ACETAMINOPHEN 325MG TAB 650 MG PO ×3 (03:05→17:52)
[2023-06-07 03:14] LABS: POC Glucose,Bedside 134 (70-110)
[2023-06-07 05:10] LABS: POC Glucose,Bedside 150 (70-110)
[2023-06-07 06:37] LABS: Basophils # 0.1 K/mm3 (0-0.2); Basophils % 0.9 % (0.1-2.0); Eosinophils # 0.2 K/mm3 (0.0-0.4); Eosinophils % 2.3 % (0.1-12.0); Hematocrit 36.6 % (42.0-52.0); Lymphocytes % 30.1 % (10-50); Mean Corpuscular HGB Conc 33.8 g/dL (31.8-35.4); Mean Corpuscular Hemoglobin 31.8 pg (27.0-31.2); Mean Corpuscular Volume 94.3 fl (80-94); Mean Platelet Volume 8.9 fl (7.4-10.4); Monocytes # 0.3 K/mm3 (0.1-1.0); Monocytes % 4.7 % (1.7-9.3); Neutrophils # 4.1 K/mm3 (1.8-7.8); Platelet Count 232 K/mm3 (142-424); Red Blood Count 3.88 M/mm3 (4.60-6.20); Red Cell Distribution Width 15.2 % (11.5-17.5); White Blood Count 6.6 K/mm3 (4.8-10.8)
[2023-06-07 06:41] LABS: Chloride 113 mmol/L (98-107)
[2023-06-07 06:42] LABS: Potassium 3.5 mmoL/L (3.5-5.1); Sodium 139 mmol/L (136-145)
[2023-06-07 06:44] LABS: Alanine Aminotransferase 33 U/L (12-78); Albumin Level 3.5 g/dl (3.5-5.0); Albumin/Globulin Ratio 1.7 (1.1-1.8); Alkaline Phosphatase 120 U/L (38-126); Anion Gap 13.5 mEq/L (5-15); Aspartate Amino Transferase 27 U/L (17-59); Bilirubin,Total 0.8 mg/dl (0.2-1.3); Blood Urea Nitrogen 6 mg/dl (9-20); Calcium 8.5 mg/dl (8.4-10.2); Carbon Dioxide 16 mmol/L (22.0-30.0); Creatinine Clearance Estimated 170 mL/min (50-200); Estimated Glomerular Filt Rate 162 ml/min (>60); GFR (African American) 196 ML/MIN (>60); Globulin 2.1 g/dL (1.3-3.2); Glucose 167 mg/dl (74-100); Total Protein,Serum 5.6 g/dl (6.3-8.2)
[2023-06-07 07:27] LABS: Hemoglobin 12.4 g/dL (14.1-18.0)
[2023-06-07] MEDS: PANTOPRAZOLE 40MG TABLET 40 MG PO ×2 (08:25→20:45)
[2023-06-07] MEDS: ENOXAPARIN 40MG/0.4ML SYRINGE 40 MG SQ (08:25)
[2023-06-07 10:37] LABS: Anion Gap 17.3 mEq/L (5-15); Blood Urea Nitrogen 8 mg/dl (9-20); Calcium 8.5 mg/dl (8.4-10.2); Carbon Dioxide 16 mmol/L (22.0-30.0); Chloride 105 mmol/L (98-107); Creatinine Clearance Estimated 170 mL/min (50-200); Estimated Glomerular Filt Rate 162 ml/min (>60); GFR (African American) 196 ML/MIN (>60); Magnesium 1.9 mg/dl (1.6-2.3); Phosphorous 3.5 mg/dl (2.5-4.5); Potassium 4.3 mmoL/L (3.5-5.1); Sodium 134 mmol/L (136-145)
[2023-06-07 10:58] LABS: Glucose 414 mg/dl (74-100)
[2023-06-07] MEDS: humaLOG 100 UNITS/ML 3ML VIAL (SSI) SQ ×3 (11:00→20:46)
[2023-06-07 11:23] LABS: POC Glucose,Bedside 369 (70-110)
--- NOTE | 2023-06-07 12:00 | DIET.NUTRFU ---
RD saw morteza this AM, he is newly dx diabetic. He is having a oral pain secondary to tooth pain. Hospital is working on setting up apt with dentist. Spoke to him about sugar intake and foods to limit. He reported he lives with and child and does cooking. He was able to speak and seemed to understand bruneian. Printed multiple handouts in icelandic and left contact information for further follow-up. According to hx and physical he had been drinking beer and has stopped, he has also lost 50# in 30 days. A1c is 14.
[2023-06-07 16:25] LABS: POC Glucose,Bedside 272 (70-110)
[2023-06-07] MEDS: LIDOCAINE 2% VISCOUS SOL 15ML UDC MM (16:43)
--- NOTE | 2023-06-07 18:31 | PC.NURSE ---
PT IS RESTING IN BED. ALERT AND ORIENTED X4. PT'S ONLY COMPLAINT IS MOLAR PAIN AND IT BEING DIFFICULT TO EAT. PT WAS ORDERED VISCOUS LIDOCAINE WHICH HAS HELPED WITH PAIN AND HAS MADE IT EASIER FOR PT TO EAT. MEDICATED PER MAR WITH TYLENOL. LUNG SOUNDS CLEAR. ABDOMEN SOFT/NON TENDER WITH ACTIVE BOWEL SOUNDS. NO SWELLING NOTED TO BLE. VOIDING WELL. VSS. WILL CONTINUE TO MONITOR.
--- NOTE | 2023-06-07 18:35 | EXP.ACUTE.PN ---
Subjective *Date: 06/07/23 *Time: 18:35 Interval history: Patient feeling better. History and review of systems performed with [employer] today. Still having some abdominal pain but wanting to eat. Still quite weak and tired. Discussed his diagnosis of diabetes, was not on any treatment after diagnosis a month ago. Additionally having pain in his mouth with an abscessed tooth. Denies any nausea or vomiting. No shortness of breath. Questions answered with use of [employer]. Transitioned to basal bolus regimen. Gap closed overnight. States he has been having symptoms of polyuria, polydipsia, nocturia for the past 1 to 2 months. Medical Exam Vital signs and Labs for Last 24 Hours: Vital Signs Temp Pulse Pulse Resp BP BP Pulse Ox 06/07/23 18:29 06/07/23 17:00 06/07/23 16:00 98 F 56 L 17 121/68 95 06/07/23 16:00 60 06/07/23 14:41 06/07/23 13:00 06/07/23 12:00 80 06/07/23 12:00 97.8 F 06/07/23 12:00 97.6 F 73 18 128/74 100 06/07/23 11:00 06/07/23 10:00 70 20 118/71 99 06/07/23 08:00 06/07/23 08:00 65 20 144/78 H 100 06/07/23 08:00 97.6 F 06/07/23 08:00 70 06/07/23 07:34 06/07/23 07:00 06/07/23 06:00 65 14 120/66 100 06/07/23 05:00 97.6 F 67 15 103/60 L 99 06/07/23 05:00 06/07/23 04:00 80 06/07/23 04:00 82 15 106/43 L 100 06/07/23 04:00 06/07/23 03:00 61 15 117/67 100 06/07/23 03:00 06/07/23 02:00 63 15 111/65 100 06/07/23 01:00 74 15 115/57 L 98 06/07/23 01:00 06/07/23 00:00 70 06/07/23 00:00 97.8 F 77 15 119/71 100 06/07/23 00:00 06/06/23 23:00 92 H 15 122/68 100 06/06/23 23:00 06/06/23 22:00 69 15 123/75 100 06/06/23 21:00 77 14 128/74 98 06/06/23 21:00 06/06/23 20:00 80 06/06/23 20:00 06/06/23 20:00 77 18 131/77 99 06/06/23 19:22 97.9 F 06/06/23 19:19 90 06/06/23 19:00 87 18 145/85 H 100 06/06/23 19:00 06/06/23 18:40 98.0 F 75 16 110/70 O2 Del Method 06/07/23 18:29 Room Air 06/07/23 17:00 Room Air 06/07/23 16:00 Room Air 06/07/23 16:00 06/07/23 14:41 Room Air 06/07/23 13:00 Room Air 06/07/23 12:00 06/07/23 12:00 06/07/23 12:00 Room Air 06/07/23 11:00 Room Air 06/07/23 10:00 Room Air 06/07/23 08:00 Room Air 06/07/23 08:00 Room Air 06/07/23 08:00 06/07/23 08:00 06/07/23 07:34 Room Air 06/07/23 07:00 Room Air 06/07/23 06:00 06/07/23 05:00 06/07/23 05:00 Room Air 06/07/23 04:00 06/07/23 04:00 Room Air 06/07/23 04:00 Room Air 06/07/23 03:00 06/07/23 03:00 Room Air 06/07/23 02:00 Room Air 06/07/23 01:00 Room Air 06/07/23 01:00 Room Air 06/07/23 00:00 06/07/23 00:00 Room Air 06/07/23 00:00 Room Air 06/06/23 23:00 Room Air 06/06/23 23:00 Room Air 06/06/23 22:00 Room Air 06/06/23 21:00 Room Air 06/06/23 21:00 Room Air 06/06/23 20:00 06/06/23 20:00 Room Air 06/06/23 20:00 Room Air 06/06/23 19:22 06/06/23 19:19 06/06/23 19:00 06/06/23 19:00 Room Air 06/06/23 18:40 Room Air Intake and Output 06/07/23 06/07/23 06/07/23 07:59 15:59 23:59 Intake Total 606.558 / 6180.036 6765 / 1806.558 Output Total 1000 / 3100 1200 / 3100 900 / 3100 Balance -393.442 / -1293.442 0 / -1293.442 -900 / -1293.442 Intake: Intake, Oral Amount 0 / 1200 1200 / 1200 Intake, Total IV Amount 606.558 / 606.558 0.9 % Sodium Chloride 1000ML 1, 150 / 150 000 ml @ 150 mls/hr IV .Q6H40M [facility] Rx#:[id number] 0.9% NaCl w/20mEq KCL 1,000 ml 450 / 450 @ 150 mls/hr IV .Q6H40M [facility] Rx# :[id number] Output: Output, Urine Amount 1000 / 3100 1200 / 3100 900 / 3100 Other: Number of Unmeasured Voids 1 Weight 65.005 kg 65 kg Patient Weight 06/07/23 23:59 Weight 65 kg Laboratory Results - last 24 hr 06/06/23 17:08: VBG pH 7.11 L, VBG pCO2 36.6, VBG pO2 71.2 H, VBG HCO3 11.4 L, VBG Total CO2 12.5 L, VBG O2 Saturation 90.7 H, VBG Base Excess -18.0 L, VBG Lactic Acid 3.2 H 06/06/23 18:23: Sodium 134 L, Potassium 4.5, Chloride 99, Carbon Dioxide 10 L D, Anion Gap 29.5 H, BUN 13, Creatinine 1.10, Estimated Creat Clear 100, Estimated GFR 80, Est GFR ( Amer) 97, Glucose 696 H* D, Calcium 9.5, Phosphorus 3.9, Magnesium 2.3 06/06/23 19:02: Troponin I < 0.01 06/06/23 19:20: POC Glucose 468 H* 06/06/23 20:17: POC Glucose 400 H* 06/06/23 21:16: POC Glucose 297 H 06/06/23 21:50: Sodium 140, Potassium 3.7, Chloride 114 H, Carbon Dioxide 14 L, Anion Gap 15.7 H, BUN 8 L D, Creatinine 0.60 L D, Estimated Creat Clear 170, Estimated GFR 162, Est GFR ( Amer) 196 D, Glucose 262 H D, Calcium 8.4, Phosphorus 1.7 L D, Magnesium 2.2, Troponin I < 0.01 06/06/23 21:55: SARS-CoV-2 (PCR) Not detected, Influenza A Untype (PCR) Not detected, Influenza Type B (PCR) Not detected 06/06/23 22:04: POC Glucose 262 H 06/06/23 22:57: POC Glucose 233 H 06/06/23 23:55: Lactate 0.8 06/06/23 23:57: POC Glucose 192 H 06/07/23 00:56: POC Glucose 163 H 06/07/23 01:50: Sodium 140, Potassium 3.8, Chloride 115 H, Carbon Dioxide 17 L, Anion Gap 11.8, BUN 7 L, Creatinine 0.60 L, Estimated Creat Clear 170, Estimated GFR 162, Est GFR ( Amer) 196, Glucose 156 H D, Calcium 8.7, Phosphorus 2.3 L D, Magnesium 2.0 06/07/23 01:52: POC Glucose 169 H 06/07/23 03:02: POC Glucose 134 H 06/07/23 05:03: POC Glucose 150 H 06/07/23 05:49: WBC 6.6 D, RBC 3.88 L, Hgb 12.4 L D, Hct 36.6 L, MCV 94.3 H, MCH 31.8 H, MCHC 33.8, RDW 15.2, Plt Count 232, MPV 8.9, Neut % (Auto) 62.0, Lymph % (Auto) 30.1, [place] % (Auto) 4.7, Eos % (Auto) 2.3, Baso % (Auto) 0.9, Neut # (Auto) 4.1, Lymph # (Auto) 2.0, [place] # (Auto) 0.3, Eos # (Auto) 0.2, Baso # (Auto) 0.1, Sodium 139, Potassium 3.5, Chloride 113 H, Carbon Dioxide 16 L, Anion Gap 13.5, BUN 6 L, Creatinine 0.60 L, Estimated Creat Clear 170, Estimated GFR 162, Est GFR ( Amer) 196, Glucose 167 H, Calcium 8.5, Phosphorus 3.0 D, Magnesium 2.0, Total Bilirubin 0.8, AST 27 D, ALT 33, Alkaline Phosphatase 120, Total Protein 5.6 L, Albumin 3.5 D, Globulin 2.1, Albumin/Globulin Ratio 1.7 06/07/23 09:50: Sodium 134 L, Potassium 4.3 D, Chloride 105, Carbon Dioxide 16 L, Anion Gap 17.3 H, BUN 8 L D, Creatinine 0.60 L, Estimated Creat Clear 170, Estimated GFR 162, Est GFR ( Amer) 196, Glucose 414 H* D, Calcium 8.5, Phosphorus 3.5, Magnesium 1.9 06/07/23 10:59: POC Glucose 369 H* 06/07/23 16:16: POC Glucose 272 H I & O for Labs for Last 24 Hours: Intake & Output 06/04/23 06/05/23 06/06/23 06/07/23 23:59 23:59 23:59 23:59 Intake Total 2010.699 / 2160.699 1806.558 / 1806.558 Output Total 900 / 1900 3100 / 3100 Balance 1110.699 / 260.699 -1293.442 / -1293.442 Weight 65.005 kg 65 kg Constitutional: Present no acute distress and average body habitus Head: Present atraumatic and normocephalic Comment:: Abscessed molar left mandible. Respiratory: Present normal respiratory effort; Absent rhonchi, wheezes or crackles Cardiac: Present Reg Rate and Rhythm GI: Present soft and normal bowel sounds; Absent distention or tenderness Extremities: Present normal inspection and full ROM Skin: Present intact; Absent erythema Neuro: Present Grossly Intact, alert, awake, oriented x 3 and moves all extremities Assessment and Plan *Assessment and plan (1) Diabetic ketoacidosis: Status: Acute Qualifiers: Diabetes mellitus complication detail: without coma Diabetes mellitus type: other specified (including MEMO) Qualified Code(s): E13.10 - Other specified diabetes mellitus with ketoacidosis without coma Category: Medical Code(s): E11.10 - Type 2 diabetes mellitus with ketoacidosis without coma (2) Newly diagnosed diabetes: Status: Acute Category: Medical Code(s): E11.9 - Type 2 diabetes mellitus without complications (3) Abscessed tooth: Status: Acute Category: Medical Code(s): K04.7 - Periapical abscess without sinus (4) Alcoholism in remission: Status: Acute Category: Medical Code(s): F10.21 - Alcohol dependence, in remission (5) Smoker: Status: Acute Category: Social Hx Code(s): F17.200 - Nicotine dependence, unspecified, uncomplicated (6) Language barrier affecting health care: Status: Acute Category: Social Hx Code(s): Z60.3 - Acculturation difficulty; Z75.8 - Other problems related to medical facilities and other health care Plan 27 yo male with no known medical history arrived to ED for evaluation of chest pain . apparent difficulty swallowing, increased thirsty and urination that had worsened since last 5 days ago. Interview made on his own language Belarusian. On arrival initial work up showed Glucose of 990. A1c of 14. anion gap of 31. patient clinically on DKA without coma. DKA protocols started and findings were discussed with ED. Agreed for admission. Patient's gap closed overnight. Transition to basal bolus regimen. Showing improvement. De-escalate to stepdown level of care. Initiating treatment for abscessed tooth. Continues to require inpatient management. Problems addressed as follows: -DKA in a newly diagnosed diabetes mellitus (MEMO): Treated with DKA protocol and insulin drip overnight. Gap closed this morning. Gap is 13 on morning labs. Transition to basal bolus regimen. Received 10 units Lantus last night, will increase to 20 units this evening. Tolerating sliding scale insulin with glucoses in the 200-400s Continue with diabetes education via [employer]. Transition to diabetic diet BMP ordered for this evening to monitor closure of gap and electrolyte disturbances. Repeat CMP, CBC, magnesium ordered for the morning. Hx of alcoholism: CIWA score low. No signs of withdrawal. Abscessed tooth: Patient has been having pain in his tooth for the past several months. Grossly abnormal with large carry and concern for abscess on exam. White cell count normal at 6. Could be underlying his hyperglycemia. Will initiate clindamycin 300 mg 3 times a day. Viscous lidocaine topically every 2 hours as needed for pain control. Continue Tylenol 650 mg every 6 hours as needed along with 800 mg ibuprofen every 6 hours as needed for pain Smoker: on nicotine patch Patient mobile, discontinue Lovenox protonix Full code
[2023-06-07 18:39] LABS: Chloride 104 mmol/L (98-107); Potassium 3.5 mmoL/L (3.5-5.1); Sodium 135 mmol/L (136-145)
[2023-06-07 18:42] LABS: Anion Gap 10.5 mEq/L (5-15); Blood Urea Nitrogen 6 mg/dl (9-20); Carbon Dioxide 24 mmol/L (22.0-30.0); Creatinine Clearance Estimated 170 mL/min (50-200); Estimated Glomerular Filt Rate 162 ml/min (>60); GFR (African American) 196 ML/MIN (>60)
[2023-06-07 18:43] LABS: Glucose 181 mg/dl (74-100)
[2023-06-07 20:07] LABS: POC Glucose,Bedside 300 (70-110)
[2023-06-07] MEDS: CLINDAMYCIN 150MG CAPSULE 300 MG PO (20:44)
[2023-06-07] MEDS: SENNOSIDES 8.6MG/DOCUSATE 50MG TABLET 1 TAB PO (20:45)
[2023-06-07] MEDS: IBUPROFEN 400 MG TABLET 800 MG PO (20:45)
[2023-06-07] MEDS: POLYETHYLENE GLYCOL 3350 17 GM PACKET PO (20:45)
[2023-06-07] MEDS: INSULIN GLARGINE 100 UNITS/ML 3ML FLEXPEN 20 UNIT SQ (20:46)
[2023-06-08 04:00] VITALS: BP 110/65; PULSE 63; RESP 16; TEMP 36.7; O2SAT 100; BMI 27.3
--- NOTE | 2023-06-08 05:25 | PC.NURSE ---
pt a&ox4. only complaints through the night were tooth pain. medicated per mar with ibuprofen. blood sugar was 300, received first dose of long acting insulin. vss. will continue to monitor
[2023-06-08 05:43] LABS: POC Glucose,Bedside 107 (70-110)
[2023-06-08 07:15] LABS: Basophils % 0.7 % (0.1-2.0); Eosinophils # 0.1 K/mm3 (0.0-0.4); Eosinophils % 2.6 % (0.1-12.0); Hematocrit 34.8 % (42.0-52.0); Hemoglobin 11.8 g/dL (14.1-18.0); Lymphocytes # 1.5 K/mm3 (0.7-4.5); Lymphocytes % 27.2 % (10-50); Mean Corpuscular Hemoglobin 31.6 pg (27.0-31.2); Mean Corpuscular Volume 92.9 fl (80-94); Mean Platelet Volume 9.1 fl (7.4-10.4); Monocytes # 0.2 K/mm3 (0.1-1.0); Monocytes % 4.4 % (1.7-9.3); Neutrophils # 3.5 K/mm3 (1.8-7.8); Neutrophils % 65.1 % (37.0-80.0); Platelet Count 211 K/mm3 (142-424); Red Blood Count 3.74 M/mm3 (4.60-6.20); Red Cell Distribution Width 15.2 % (11.5-17.5); White Blood Count 5.4 K/mm3 (4.8-10.8)
[2023-06-08 07:21] LABS: Chloride 106 mmol/L (98-107); Sodium 135 mmol/L (136-145)
[2023-06-08 07:24] LABS: Alanine Aminotransferase 43 U/L (12-78); Albumin/Globulin Ratio 1.4 (1.1-1.8); Alkaline Phosphatase 128 U/L (38-126); Anion Gap 7.9 mEq/L (5-15); Aspartate Amino Transferase 55 U/L (17-59); Bilirubin,Total 0.6 mg/dl (0.2-1.3); Blood Urea Nitrogen 4 mg/dl (9-20); Calcium 8.5 mg/dl (8.4-10.2); Carbon Dioxide 24 mmol/L (22.0-30.0); Creatinine Clearance Estimated 195 mL/min (50-200); Estimated Glomerular Filt Rate 162 ml/min (>60); GFR (African American) 196 ML/MIN (>60); Globulin 2.1 g/dL (1.3-3.2); Glucose 105 mg/dl (74-100); Phosphorous 3.5 mg/dl (2.5-4.5); Total Protein,Serum 5.1 g/dl (6.3-8.2)
[2023-06-08 07:25] LABS: Magnesium 1.7 mg/dl (1.6-2.3)
[2023-06-08 07:28] LABS: Potassium 2.9 mmoL/L (3.5-5.1)
[2023-06-08 07:48] VITALS: BP 122/66; PULSE 66; RESP 16; TEMP 36.8; O2SAT 99
[2023-06-08 08:26] LABS: Cholesterol 150 mg/dl (140-200); HDL Cholesterol 25 mg/dl (40-60); Triglycerides 244 mg/dl (30-150); VLDL Cholesterol 49 mg/dL (0-40)
[2023-06-08 08:36] LABS: Direct LDL Cholesterol 66.96 mg/dL (100-129)
[2023-06-08] MEDS: METFORMIN 500MG TABLET 500 MG PO ×2 (09:56→17:10)
[2023-06-08] MEDS: SENNOSIDES 8.6MG/DOCUSATE 50MG TABLET 1 TAB PO ×2 (09:56→20:12)
[2023-06-08] MEDS: POLYETHYLENE GLYCOL 3350 17 GM PACKET PO (09:56)
[2023-06-08] MEDS: MAGNESIUM OXIDE 400MG TABLET 400 MG PO ×2 (09:56→20:11)
[2023-06-08] MEDS: CLINDAMYCIN 150MG CAPSULE 300 MG PO ×3 (09:56→20:09)
[2023-06-08] MEDS: POTASSIUM CHLORIDE 20MEQ TAB 40 MEQ PO ×3 (09:56→20:12)
[2023-06-08] MEDS: ALPRAZolam 0.25MG TABLET 0.25 MG PO ×2 (10:30→21:52)
--- NOTE | 2023-06-08 10:42 | ECG_ITS ---
APPROVED REPORT Exam: Resting ECG HR:64 bpm ECG Measurements Heart Rate 64 AXES MS 109 P 266 QRSd 101 QRS -20 QT 382 T 31 QTc 392 Conclusion JUNCTIONAL RHYTHM ABNORMAL RHYTHM ECG UNCONFIRMED REPORT Electronically signed by : MIRELLA MENDEZ, 06/09/2023 01:14:46
[2023-06-08 11:10] LABS: POC Glucose,Bedside 326 (70-110)
[2023-06-08] MEDS: BELLADONNA ALKALOIDS 60 ML ML PO (11:26)
[2023-06-08] MEDS: humaLOG 100 UNITS/ML 3ML VIAL (SSI) SQ ×3 (11:27→20:11)
[2023-06-08 11:33] LABS: Troponin I < 0.01 ng/ml (0.00-0.034)
[2023-06-08 12:00] VITALS: BP 116/70; PULSE 65; RESP 16; TEMP 36.8; O2SAT 96
--- NOTE | 2023-06-08 13:04 | EXP.ACUTE.PN ---
Subjective *Date: 06/08/23 *Time: 13:04 Interval history: Patient states he is feeling somewhat better today. Tooth is not nearly as painful. Having some chest discomfort/heartburn. Denies any marquis nausea. Still has not had a bowel movement. States it hurts when he tries because he has not pooped in several days. Tolerating p.o. liquids. Afebrile. Labs show continued closure of gap this morning. Medical Exam Vital signs and Labs for Last 24 Hours: Vital Signs Temp Pulse Pulse Resp BP Pulse Ox O2 Del Method 06/08/23 12:00 98.2 F 65 16 116/70 96 Room Air 06/08/23 07:48 98.2 F 66 16 122/66 99 Room Air 06/08/23 06:48 Room Air 06/08/23 05:00 Room Air 06/08/23 04:00 98.1 F 63 16 110/65 100 Room Air 06/08/23 03:00 Room Air 06/08/23 01:00 Room Air 06/07/23 23:59 98.1 F 61 16 140/62 98 Room Air 06/07/23 23:00 Room Air 06/07/23 21:00 Room Air 06/07/23 19:49 98.6 F 65 16 121/64 99 Room Air 06/07/23 19:42 Room Air 06/07/23 18:29 Room Air 06/07/23 17:00 Room Air 06/07/23 16:00 98 F 56 L 17 121/68 95 Room Air 06/07/23 16:00 60 06/07/23 14:41 Room Air Intake and Output 06/07/23 06/08/23 06/08/23 23:59 07:59 15:59 Intake Total 300 / 2306.558 200 / 975 775 / 975 Output Total 900 / 3100 450 / 1100 650 / 1100 Balance -600 / -793.442 -250 / -125 125 / -125 Intake: Intake, Oral Amount 300 / 1700 200 / 975 775 / 975 Output: Output, Urine Amount 900 / 3100 450 / 1100 650 / 1100 Other: Number of Voids 1 Number of Unmeasured Voids 1 Number of Bowel Movements 1 Weight 74.435 kg Patient Weight 06/08/23 23:59 Weight 74.435 kg Laboratory Results - last 24 hr 06/07/23 16:10: Sodium 135 L, Potassium 3.5, Chloride 104, Carbon Dioxide 24, Anion Gap 10.5, BUN 6 L, Creatinine 0.60 L, Estimated Creat Clear 170, Estimated GFR 162, Est GFR ( Amer) 196, Glucose 181 H D, Calcium 9.0 06/07/23 16:16: POC Glucose 272 H 06/07/23 19:56: POC Glucose 300 H 06/08/23 05:30: POC Glucose 107 06/08/23 06:45: WBC 5.4, RBC 3.74 L, Hgb 11.8 L, Hct 34.8 L, MCV 92.9, MCH 31.6 H, MCHC 34.0, RDW 15.2, Plt Count 211, MPV 9.1, Neut % (Auto) 65.1, Lymph % (Auto) 27.2, [place] % (Auto) 4.4, Eos % (Auto) 2.6, Baso % (Auto) 0.7, Neut # (Auto) 3.5, Lymph # (Auto) 1.5, [place] # (Auto) 0.2, Eos # (Auto) 0.1, Baso # (Auto) 0.0, Sodium 135 L, Potassium 2.9 L*, Chloride 106, Carbon Dioxide 24, Anion Gap 7.9, BUN 4 L D, Creatinine 0.60 L, Estimated Creat Clear 195, Estimated GFR 162, Est GFR ( Amer) 196, Glucose 105 H D, Calcium 8.5, Phosphorus 3.5, Magnesium 1.7 D, Total Bilirubin 0.6, AST 55 D, ALT 43 D, Alkaline Phosphatase 128 H, Total Protein 5.1 L, Albumin 3.0 L D, Globulin 2.1, Albumin/Globulin Ratio 1.4, Triglycerides 244 H, Cholesterol 150, LDL Cholesterol Direct 66.96 L, VLDL Cholesterol 49 H, HDL Cholesterol 25 L, Cholesterol/HDL Ratio 6.0 H 06/08/23 10:55: Troponin I < 0.01 06/08/23 11:03: POC Glucose 326 H* I & O for Labs for Last 24 Hours: Intake & Output 06/05/23 06/06/23 06/07/23 06/08/23 23:59 23:59 23:59 23:59 Intake Total 2009.699 / 216.699 2106.558 / 2306.558 975 / 975 Output Total 900 / 1900 3100 / 3100 1100 / 1100 Balance 1110.699 / 260.699 -993.442 / -793.442 -125 / -125 Weight 65.005 kg 65 kg 74.435 kg Constitutional: Present no acute distress and average body habitus Head: Present atraumatic and normocephalic Comment:: Abscessed molar left mandible. Respiratory: Present normal respiratory effort; Absent rhonchi, wheezes or crackles Cardiac: Present Reg Rate and Rhythm GI: Present soft and normal bowel sounds; Absent distention or tenderness Extremities: Present normal inspection and full ROM Skin: Present intact; Absent erythema Neuro: Present Grossly Intact, alert, awake, oriented x 3 and moves all extremities Assessment and Plan *Assessment and plan (1) Diabetic ketoacidosis: Status: Acute Qualifiers: Diabetes mellitus complication detail: without coma Diabetes mellitus type: other specified (including MEMO) Qualified Code(s): E13.10 - Other specified diabetes mellitus with ketoacidosis without coma Category: Medical Code(s): E11.10 - Type 2 diabetes mellitus with ketoacidosis without coma (2) Newly diagnosed diabetes: Status: Acute Category: Medical Code(s): E11.9 - Type 2 diabetes mellitus without complications (3) Abscessed tooth: Status: Acute Category: Medical Code(s): K04.7 - Periapical abscess without sinus (4) Alcoholism in remission: Status: Acute Category: Medical Code(s): F10.21 - Alcohol dependence, in remission (5) Smoker: Status: Acute Category: Social Hx Code(s): F17.200 - Nicotine dependence, unspecified, uncomplicated (6) Language barrier affecting health care: Status: Acute Category: Social Hx Code(s): Z60.3 - Acculturation difficulty; Z75.8 - Other problems related to medical facilities and other health care Plan 27 yo male with no known medical history arrived to ED for evaluation of chest pain . apparent difficulty swallowing, increased thirsty and urination that had worsened since last 5 days ago. Interview made on his own language Burkinan. On arrival initial work up showed Glucose of 990. A1c of 14. anion gap of 31. patient clinically on DKA without coma. DKA protocols started and findings were discussed with ED. Agreed for admission. Patient's gap closed overnight. Tolerating basal bolus regimen. Remains closed. Continue education today via service desk specialist and transition to regimen he can continue at home. Anticipate discharge tomorrow. 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 Would like to be discharged by then. Problems addressed as follows: -DKA in a newly diagnosed diabetes mellitus (MEMO): Morning glucose 105. Required approximately 40 units of sliding scale insulin yesterday. Will increase Lantus to 25 units tonight. Initiate metformin 500 mg twice daily. Continue diabetes education via service desk specialist. Diabetic diet CBC, CMP, magnesium ordered for the morning Hx of alcoholism: CIWA score low. No signs of withdrawal. But does have anxiety. Will administer 0.25 mg Xanax 3 times a day as needed. Heartburn/chest pain. EKG obtained, no ST elevations. Troponin negative. Improved with GI cocktail. Will initiate Tums 4 times a day as needed Abscessed tooth: Patient has been having pain in his tooth for the past several months. Grossly abnormal with large carry and concern for abscess on exam. White cell count normal at 5.4. Continue clindamycin 300 mg 3 times a day. Viscous lidocaine topically every 2 hours as needed for pain control. Continue Tylenol 650 mg every 6 hours as needed along with 800 mg ibuprofen every 6 hours as needed for pain Smoker: on nicotine patch Patient mobile, discontinue Lovenox protonix Full code
[2023-06-08 16:00] VITALS: BP 112/60; PULSE 82; RESP 20; TEMP 36.8; O2SAT 100
[2023-06-08 16:50] LABS: POC Glucose,Bedside 300 (70-110)
--- NOTE | 2023-06-08 18:08 | PC.NURSE ---
Pt a&ox4 and vss. Patient gave self an insulin injection successfully today.
[2023-06-08 19:28] LABS: POC Glucose,Bedside 281 (70-110)
[2023-06-08 19:55] VITALS: BP 99/55; PULSE 70; RESP 16; TEMP 37.1; O2SAT 99
[2023-06-08] MEDS: INSULIN GLARGINE 100 UNITS/ML 3ML FLEXPEN 25 UNIT SQ (20:10)
[2023-06-08] MEDS: PANTOPRAZOLE 40MG TABLET 40 MG PO (20:11)
[2023-06-08] MEDS: MELATONIN 5MG TABLET 10 MG PO (20:11)
[2023-06-09 00:17] LABS: POC Glucose,Bedside 117 (70-110)
[2023-06-09 04:00] VITALS: BP 119/67; PULSE 65; RESP 16; TEMP 36.5; O2SAT 97; BMI 28.0
--- NOTE | 2023-06-09 04:03 | PC.NURSE ---
a&ox4. pt has rested well this shift, has had no complaints. vss. planning to be d/c today.
[2023-06-09 05:20] LABS: POC Glucose,Bedside 146 (70-110)
[2023-06-09] MEDS: METFORMIN 500MG TABLET 500 MG PO (06:46)
[2023-06-09 07:22] VITALS: BP 110/69; PULSE 70; RESP 16; TEMP 36.7; O2SAT 99
--- NOTE | 2023-06-09 07:34 | P.DS_ITS ---
General Admission date:: 06/06/23 Discharge date: 06/09/23 HPI HPI HPI: This is a 27 yo male with no known medical history arrived to ED for evaluation of chest pain . apparent difficulty swallowing, increased thirsty and urination that had worsened since last 5 days ago. Interview made on his own language Georgian. Patient was a daily heavy alcohol drinker until a month a ago when he was diagnosed with diabetes at the [facility] in [place]. He also has lose 50 lbs in the last 30 days. Patient lack education about his recent diagnosis, and has to move for a work opportunity. He did not know that he needed to be checking his blood sugar nor what diabetes was. He has been taking the oral medications that he cannot recall the name and was running out. Patient denies cardiac chest pain shortness of breath fever chills hemoptysis hematochezia melena vomiting or diarrhea but does endorse nausea. patient was brought in from work today. Admitted for further treatment and management. Hospital Course Hospital Course Hospital Course: 27 yo male with no known medical history arrived to ED for evaluation of chest pain . apparent difficulty swallowing, increased thirsty and urination that had worsened since last 5 days ago. Interview made on his own language Georgian. On arrival initial work up showed Glucose of 990. A1c of >14. anion gap of 31. patient clinically in DKA without coma. DKA protocols started and findings were discussed with ED. Agreed for admission. Patient's gap closed overnight. Transitioned to basal bolus regimen. Did well with better control. Able to advance diet. Started treatment for abscessed tooth. Extensive time on counseling on day of discharge. Stable to discharge home on simplified insulin regimen. Encourage close follow-up with a physician or clinic in [place] when he gets home. Strongly encouraged to have tooth extracted that is abscessed. Problems addressed as follows: -DKA in a newly diagnosed diabetes mellitus (MEMO): High anion gap metabolic acidosis on admission. In DKA. Suspect late onset type I. Responded well to DKA protocol with insulin drip. Gap closed over the first night of admission. Was transition to basal bolus regimen. Requiring between 50 and 60 units of insulin daily including long-acting and short acting. Patient was initiated on metformin. Continue 500 mg twice daily for 1 month. Prescription sent for 1000 mg twice daily thereafter. After much discussion with pharmacy, will transition patient to 70/30 NPH/regular insulin due to ease of obtaining this medication without insurance. Sent prescription to [facility] and provided good Rx discount card to patient. Recommend continuing 25 units twice daily of 70/30 combo insulin. 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 Patient stated understanding. Appeared a little overwhelmed by everything which is understandable. Patient self-administered shots during admission. Hx of alcoholism: CIWA score low. No signs of withdrawal. But does have anxiety. Treated intermittently with Xanax during admission. Heartburn/chest pain. EKG obtained, no ST elevations. Troponin negative. Improved with GI cocktail. Recommend Tums and Prilosec at discharge for [id number] treatment Abscessed tooth: Patient has been having pain in his tooth for the past several months. Grossly abnormal with large cavity and concern for abscess on exam. White cell count normal throughout admission. Initiated on clindamycin. Will continue 300 mg 3 times a day to complete 7 days of antibiotics. Treating with viscous lidocaine topically. Can continue Orajel at discharge. Tylenol or ibuprofen as needed for pain control. Total time spent on discharge 45 minutes in counseling, documentation, chart review, and direct care with patient. Exam Data for Last 24 hours Vital signs and Labs for Last 24 Hours: Temp Pulse Resp BP Pulse Ox O2 Del Method 98.1 F 70 16 110/69 99 Room Air 06/09/23 07:22 06/09/23 07:22 06/09/23 07:22 06/09/23 07:22 06/09/23 07:22 06/09/23 07:22 Laboratory Results - last 24 hr 06/08/23 06:45: Triglycerides 244 H, Cholesterol 150, LDL Cholesterol Direct 66.96 L, VLDL Cholesterol 49 H, HDL Cholesterol 25 L, Cholesterol/HDL Ratio 6.0 H 06/08/23 10:55: Troponin I < 0.01 06/08/23 11:03: POC Glucose 326 H* 06/08/23 16:43: POC Glucose 300 H 06/08/23 19:19: POC Glucose 281 H 06/09/23 00:10: POC Glucose 117 H 06/09/23 05:04: POC Glucose 146 H I & O for Last 24 hours: Intake & Output 06/06/23 06/07/23 06/08/23 06/09/23 23:59 23:59 23:59 23:59 Intake Total 2009.699 / 2160.699 2106.558 / 2306.558 175 / 2050 535 / 535 Output Total 900 / 1900 3100 / 3100 1100 / 1100 0 / 0 Balance 1110.699 / 260.699 -993.442 / -793.442 650 / 950 535 / 535 Weight 65.005 kg 65 kg 74.435 kg 76.34 kg Microbiology Reports for the Last 24 Hours: Microbiology 06/06/23 17:04 Urine,Clean Catch Urine Culture - Final Constitutional Constitutional: no acute distress *Routine HEENT Exam Head: Present normocephalic Eye: Present EOMI and PERRL ENT: Present mucous membranes moist Comments: Abscessed mandibular molar on left. Tenderness improved *Routine Neck Exam Neck: Present supple; Absent lymphadenopathy *Routine Respiratory Exam Respiratory: Present CTA bilaterally *Routine Cardiovascular Exam Cardiovascular: Present RRR *Routine Abdominal Exam Abdominal: Present soft and normoactive bowel sounds; Absent tenderness *Routine Rectal Exam Patient deferred: visual exam *Routine Exam Patient deferred: penile exam *Routine Extremities Exam Extremities: Absent cyanosis, clubbing or edema *Routine Skin Exam Skin: Present warm; Absent rash *Routine Neurological Exam Neurological: Present alert, oriented X3 and moving all extremities; Absent altered mental status Routine Psychiatric Exam Psychiatric: Present normal affect Results Data Completed and Pending Labs on day of discharge: Labs from last 24 hours 06/09/23 06/09/23 06/08/23 05:04 00:10 19:19 POC Glucose 146 H 117 H 281 H Troponin I Triglycerides Cholesterol LDL Cholesterol Direct VLDL Cholesterol HDL Cholesterol Cholesterol/HDL Ratio 06/08/23 06/08/23 06/08/23 16:43 11:03 10:55 POC Glucose 300 H 326 H* Troponin I < 0.01 Triglycerides Cholesterol LDL Cholesterol Direct VLDL Cholesterol HDL Cholesterol Cholesterol/HDL Ratio 06/08/23 06:45 POC Glucose Troponin I Triglycerides 244 H Cholesterol 150 LDL Cholesterol Direct 66.96 L VLDL Cholesterol 49 H HDL Cholesterol 25 L Cholesterol/HDL Ratio 6.0 H DS: Diagnosis Discharge Diagnosis (1) Diabetic ketoacidosis: Status: Resolved Code(s): E11.10 - Type 2 diabetes mellitus with ketoacidosis without coma Qualifiers: Diabetes mellitus complication detail: without coma Diabetes mellitus type: other specified (including MEMO) Qualified Code(s): E13.10 - Other specified diabetes mellitus with ketoacidosis without coma (2) Newly diagnosed diabetes: Status: Acute Code(s): E11.9 - Type 2 diabetes mellitus without complications (3) Abscessed tooth: Status: Acute Code(s): K04.7 - Periapical abscess without sinus (4) Alcoholism in remission: Status: Acute Code(s): F10.21 - Alcohol dependence, in remission (5) Smoker: Status: Acute Code(s): F17.200 - Nicotine dependence, unspecified, uncomplicated (6) Language barrier affecting health care: Status: Acute Code(s): Z60.3 - Acculturation difficulty; Z75.8 - Other problems related to medical facilities and other health care Meds Home Medications and Allergies Home Medications Medication Instructions Recorded Confirmed Type clindamycin HCl 300 mg capsule 300 mg PO TID 5 days #15 caps 06/08/23 Rx sennosides 8.6 mg-docusate sodium 1 tab PO BID PRN Constipation 5 06/08/23 Rx 50 mg tablet (Stimulant Laxative days #10 tabs Plus) calcium carbonate (Tums) 500 mg (2.5 x 200 mg calcium (500 06/09/23 Rx mg)) PO QIDP PRN Heartburn #0 tabs insulin NPH-regular 70-30 U-100 25 unit (0.25 mL) SQ BID 30 days 06/09/23 Rx insulin 100 unit/mL subcutaneous #15 mL pen (Humulin 70/30 U-100 KwikPen) metformin 1,000 mg tablet 1,000 mg PO BID 30 days #60 tabs 06/09/23 Rx omeprazole 20 mg tablet,delayed 20 mg PO BID PRN heartburn 30 days 06/09/23 Rx release #60 tabs pen needle, diabetic 31 gauge x #100 ea 06/09/23 Rx 1/4 New Prescriptions to Start Prescriptions: clindamycin HCl Alfa Chery insulin NPH and regular human [Humulin 70/30 U-100 KwikPen] Alfa Chery metformin Alfa Chery omeprazole Alfa Chery pen needle, diabetic Alfa Chery sennosides-docusate sodium [Stimulant Laxative Plus] Alfa Chery Allergies Allergy/AdvReac Type Severity Reaction Status Date / Time No Known Allergies Allergy Verified 06/06/23 16:27 Discharge Plan Disposition Patient Disposition: Home, Self-Care Condition: Fair Discharge Order Discharge Orders: Discharge Order (Routine); Ordered 06/09/23 Ordered By: Alfa Chery Follow up Plan Follow up with: India Craig APRN [Nurse Practitioner] - 06/12/23 2:30 pm Justin Puente [Referring] - 06/11/23 9:30 am Prescriptions/Medication Reconciliation: New clindamycin HCl 300 mg capsule 300 mg PO TID 5 Days Qty: 15 0RF sennosides-docusate sodium [Stimulant Laxative Plus] 8.6-50 mg Tablet 1 tab PO BID PRN (Reason: Constipation) 5 Days Qty: 10 0RF calcium carbonate [Tums] 200 mg calcium (500 mg) Tablet,Chewable 500 mg PO QIDP PRN (Reason: Heartburn) Qty: 0 0RF Rx Instructions: obtain over the counter omeprazole 20 mg tablet,delayed release (DR/EC) 20 mg PO BID PRN (Reason: heartburn) 30 Days Qty: 60 0RF Rx Instructions: obtain Over the counter Humulin 70/30 U-100 KwikPen 100 unit/mL (70-30) insulin pen 25 unit SQ BID 30 Days Qty: 15 2RF (DME) pen needle, diabetic 31 gauge x 1/4 needle See Rx Instructions .Route Qty: 100 12RF Rx Instructions: As directed metformin 1,000 mg tablet 1,000 mg PO BID 30 Days Qty: 60 2RF Problem Reconciliation Problems Reviewed?: Yes Patient Discharge Instructions ACTIVITY: Continue current activity DIET: continue same diet and diabetic diet Patient Instructions: DI for Diabetic Ketoacidosis Providers Primary Care Provider: Provider,Referral Admit Provider: Alfa Chery Attending Provider: Alfa Chery
[2023-06-09 08:02] LABS: Eosinophils # 0.1 K/mm3 (0.0-0.4); Eosinophils % 2.6 % (0.1-12.0); Hematocrit 37.2 % (42.0-52.0); Lymphocytes # 1.8 K/mm3 (0.7-4.5); Lymphocytes % 40.4 % (10-50); Mean Corpuscular Hemoglobin 32.2 pg (27.0-31.2); Mean Corpuscular Volume 92.1 fl (80-94); Mean Platelet Volume 10.3 fl (7.4-10.4); Monocytes # 0.2 K/mm3 (0.1-1.0); Neutrophils # 2.3 K/mm3 (1.8-7.8); Platelet Count 179 K/mm3 (142-424); Red Blood Count 4.04 M/mm3 (4.60-6.20); Red Cell Distribution Width 15.3 % (11.5-17.5); White Blood Count 4.5 K/mm3 (4.8-10.8)
[2023-06-09 08:07] LABS: Chloride 105 mmol/L (98-107); Potassium 3.5 mmoL/L (3.5-5.1); Sodium 134 mmol/L (136-145)
[2023-06-09 08:09] LABS: Alanine Aminotransferase 48 U/L (12-78); Blood Urea Nitrogen 5 mg/dl (9-20); Creatinine Clearance Estimated 240 mL/min (50-200); Estimated Glomerular Filt Rate 199 ml/min (>60); GFR (African American) 241 ML/MIN (>60)
[2023-06-09 08:10] LABS: Albumin Level 3.4 g/dl (3.5-5.0); Albumin/Globulin Ratio 1.6 (1.1-1.8); Alkaline Phosphatase 146 U/L (38-126); Anion Gap 5.5 mEq/L (5-15); Aspartate Amino Transferase 83 U/L (17-59); Bilirubin,Total 0.7 mg/dl (0.2-1.3); Calcium 8.9 mg/dl (8.4-10.2); Carbon Dioxide 27 mmol/L (22.0-30.0); Globulin 2.1 g/dL (1.3-3.2); Glucose 118 mg/dl (74-100); Total Protein,Serum 5.5 g/dl (6.3-8.2)
[2023-06-09 08:16] LABS: Magnesium 1.8 mg/dl (1.6-2.3)
[2023-06-09] MEDS: POLYETHYLENE GLYCOL 3350 17 GM PACKET PO (09:59)
[2023-06-09] MEDS: MAGNESIUM OXIDE 400MG TABLET 400 MG PO (10:00)
[2023-06-09] MEDS: SENNOSIDES 8.6MG/DOCUSATE 50MG TABLET 1 TAB PO (10:00)
[2023-06-09] MEDS: CLINDAMYCIN 150MG CAPSULE 300 MG PO (10:00)
[2023-06-09] MEDS: POTASSIUM CHLORIDE 20MEQ TAB 40 MEQ PO (10:00)
[2023-06-09] MEDS: humaLOG MIX 75/25 3ML FLEXPEN 25 UNIT SQ (11:34)
[2023-06-09] MEDS: humaLOG 100 UNITS/ML 3ML VIAL (SSI) SQ (11:35)
[2023-06-09 11:49] LABS: POC Glucose,Bedside 235 (70-110)
--- NOTE | 2023-06-09 13:09 | PC.NURSE ---
Rt received very thorough discharge instructions about medications, insulin administration and diabetes with use of head rigger. Pt was able to give himself his own insulin injection this afternoon with insulin pen and voiced he was comfortable with the injections being twice daily. Pt stated he understood he did not need another dose till tomorrow morning. Pt has follow up appointments with and Yanique Craig and he stated if he was still in town he would go to these appointment and if not he would follow up with someone in [place]. All written instructions were given in mongolian.
--- NOTE | 2023-06-11 11:03 | CARE MANAGER ---
Unable to reach patient via phone, no VM available. Call attempted x 2.
[2023-06-13 14:43] LABS: GAD-65 <5.0 U/mL (0.0-5.0)
== END 2023-06-09 13:35 | disposition home or self-care (01) | DRG 639 ==
LOC: ER 17:33 → 2ND 18:15
PROVIDERS: Physician Assistant; Admitting Provider Internal Medicine Adolescent Medicine; Emergency Provider Emergency Medicine; Visit Provider Internal Medicine Adolescent Medicine
DX: E11.10 Type 2 diabetes mellitus with ketoacidosis without coma (principal); K04.7 Periapical abscess without sinus; F10.21 Alcohol dependence, in remission; F17.210 Nicotine dependence, cigarettes, uncomplicated; Z79.899 Other long term (current) drug therapy; F41.9 Anxiety disorder, unspecified; Z75.8 Other problems related to medical facilities and other health care; R12 Heartburn
CPT/HCPCS: 36415; 71045; 80048; 80053; 80061; 81001; 82009; 82803; 82962; 83036; 83519; 83605; 83735; 84100; 84443; 84484; 85025; 87040; 87086; 87636; 93005; 99291; J0131